=== PATIENT | female | born 1960 | race Caucasian/White ===

== ENCOUNTER 2016-12-26 09:11 | Emergency (ER) | payer MEDICARE | END 2016-12-26 12:32 | disposition home or self-care (01) | LOC: ER 09:11 | DX: R11.0 Nausea (principal); G89.29 Other chronic pain; R10.9 Unspecified abdominal pain; R60.0 Localized edema; E11.9 Type 2 diabetes mellitus without complications; I10 Essential (primary) hypertension; Z90.49 Acquired absence of other specified parts of digestive tract; Z90.710 Acquired absence of both cervix and uterus; Z87.442 Personal history of urinary calculi; Z88.0 Allergy status to penicillin; Z79.899 Other long term (current) drug therapy | CPT/HCPCS: 36415; 80307; 87502; 87651; 96361; 96374; 96375; J2550 ==

== ENCOUNTER 2016-12-30 16:25 | Emergency (ER) | payer MEDICARE | END 2016-12-30 20:50 | disposition home or self-care (01) | LOC: ER 16:25 | DX: R60.0 Localized edema (principal); M54.9 Dorsalgia, unspecified; I10 Essential (primary) hypertension; Z90.710 Acquired absence of both cervix and uterus; Z87.442 Personal history of urinary calculi; Z88.0 Allergy status to penicillin; Z88.1 Allergy status to other antibiotic agents; Z88.6 Allergy status to analgesic agent | CPT/HCPCS: 36415; 51702; 96374; J1940 ==